=== PATIENT | female | born 1960 | race Caucasian/White ===

== ENCOUNTER 2024-11-20 19:41 | Emergency (ER) | payer BC ==
[~2024-11-20] VITALS: Ht 165.1 cm; Wt 74.8 kg
[2024-11-20] MEDS ORDERED: TDAP [DIPH/PERTUSSIS/TET] 0.5 ML VIAL IM ONE (21:28)
[2024-11-20] MEDS: TDAP [DIPH/PERTUSSIS/TET] 0.5 ML VIAL IM ONE (21:29)
[2024-11-20] MEDS ORDERED: LIDOCAINE 0.5%-EPI 1:200,000 50 ML VIAL ONE (22:36)
[2024-11-20 23:15] VITALS: BP 144/77; TEMP 98.3; O2SAT 99
== END 2024-11-20 23:17 | disposition home or self-care (01) ==
LOC: ER 19:43
DX: S83.8X1A Sprain of other specified parts of right knee, initial encounter (principal); S81.011A Laceration without foreign body, right knee, initial encounter; M25.522 Pain in left elbow; Z88.5 Allergy status to narcotic agent; Z91.048 Other nonmedicinal substance allergy status; Z96.659 Presence of unspecified artificial knee joint; Z60.2 Problems related to living alone; W01.0XXA Fall on same level from slipping, tripping and stumbling without subsequent striking against object, initial encounter; Y93.89 Activity, other specified; Y92.89 Other specified places as the place of occurrence of the external cause; Y99.8 Other external cause status
CPT/HCPCS: 12002; 73080; 73564; 73590; 90471; 90715; 99284; J3490